=== PATIENT | male | born 1945 | race Caucasian/White ===

== ENCOUNTER → 2021-08-31 | Outpatient (CLI) | payer MEDICARE ==
[2021-09-01 08:17] LABS: THYROXINE (T4) 7.7 ug/dL (4.5-12.0)
== END ==
LOC: LAB 13:53
PROVIDERS: Nurse Practitioner
DX: E11.9 Type 2 diabetes mellitus without complications (principal); E01.8 Other iodine-deficiency related thyroid disorders and allied conditions
CPT/HCPCS: 36415; 80053; 83036; 84436; 84443; 84480

== ENCOUNTER → 2022-03-20 | Outpatient (CLI) | payer MEDICARE ==
[2022-03-20 08:44] LABS: HEMOGLOBIN 15.2 gm/dl (14.0-17.5); RED BLOOD COUNT 4.88 M/UL (4.20-5.50); WHITE BLOOD COUNT 5.8 K/UL (4.5-11.0)
[2022-03-20 09:02] LABS: BUN/CREATININE RATIO 13 (0-10)
[2022-03-21 07:12] LABS: HEMOGLOBIN A1C 6.6 % (4.8-5.6)
[2022-03-21 08:13] LABS: THYROXINE (T4) 7.9 ug/dL (4.5-12.0)
[2022-03-21 09:13] LABS: PROSTATE-SPECIFIC AG 3.8 ng/mL (0.0-4.0); TSH 6.4 uIU/mL (0.450-4.500)
== END ==
LOC: LAB 08:19
PROVIDERS: Nurse Practitioner Family
DX: Z12.5 Encounter for screening for malignant neoplasm of prostate (principal); E11.9 Type 2 diabetes mellitus without complications; E78.5 Hyperlipidemia, unspecified; E03.9 Hypothyroidism, unspecified; R53.83 Other fatigue
CPT/HCPCS: 36415; 80053; 81001; 83036; 84153; 84436; 84443; 84480; 85025